=== PATIENT | male | born 1970 | race Hispanic/Latino ===

== ENCOUNTER 2019-06-13 20:44 | Emergency (ER) | payer OTHER ==
[~2019-06-13 20:44] MED LIST: HYDR-4064 PO; LEVO125T11 PO; RANI150C4 PO
[2019-06-13] MEDS ORDERED: IBUPROFEN 200 MG TAB ONE (21:19)
[2019-06-13] MEDS ORDERED: ONDANSETRON ODT 4 MG TAB ONE ×2 (21:20→22:26)
[2019-06-13] MEDS ORDERED: HYDROCODONE/ACETAMINOPHEN 10/325 MG TAB ONE (22:27)
[2019-06-13] MEDS ORDERED: TETRACAINE HCL 0.5% 4 ML OPHTH SOLN ONE (22:30)
[2019-06-13] MEDS ORDERED: FLUORESCEIN SODIUM 1 STRIP STRIP ONE (22:30)
== END 2019-06-13 23:06 | disposition home or self-care (01) ==
LOC: EDH 20:44
DX: S02.85XA Fracture of orbit, unspecified, initial encounter for closed fracture (principal); S05.02XA Injury of conjunctiva and corneal abrasion without foreign body, left eye, initial encounter; E07.9 Disorder of thyroid, unspecified; Z88.0 Allergy status to penicillin; Z88.2 Allergy status to sulfonamides; Y04.2XXA Assault by strike against or bumped into by another person, initial encounter; Y93.89 Activity, other specified; Y92.89 Other specified places as the place of occurrence of the external cause; Y99.8 Other external cause status
CPT/HCPCS: 70450

== ENCOUNTER → 2020-11-01 | Outpatient (CLI) | payer OTHER | END | disposition home or self-care (01) | LOC: OIH 08:40 | PROVIDERS: ATTEND Internal Medicine Cardiovascular Disease | DX: Z13.6 Encounter for screening for cardiovascular disorders (principal) | CPT/HCPCS: 75571 ==